=== PATIENT | female | born 1975 | race African-American/Black ===

== ENCOUNTER 2022-10-15 06:06 | Inpatient (IN) ==
[2022-10-15] MEDS ORDERED: ProvayBLUE 0.5% ONE (06:41)
[2022-10-15] MEDS ORDERED: BETADINE SOLN ONE (06:41)
[2022-10-15] MEDS ORDERED: D5 1/2 NS 1,000 ML 1,000 ML IV SCH (06:48)
[2022-10-15] MEDS ORDERED: ANCEF VIAL 1 GRAM IVP ONE (06:48)
[2022-10-15] MEDS ORDERED: NS 100 ML IV 100 ML ONE (06:57)
[2022-10-15] MEDS ORDERED: ANCEF VIAL 1 GRAM ONE (06:57)
[2022-10-15] MEDS ORDERED: NS 1,000 ML IV 1,000 ML ONE (06:57)
[2022-10-15 07:17] VITALS: BMI 29.0
[2022-10-15] MEDS ORDERED: ZEMURON 100 MG VIAL ONE (07:22)
[2022-10-15] MEDS ORDERED: QUELICIN (OR ANECTINE) ONE (07:22)
[2022-10-15] MEDS ORDERED: VERSED ONE (07:22)
[2022-10-15] MEDS ORDERED: FENTANYL VIAL INJ 250 mcg ONE (07:22)
[2022-10-15] MEDS ORDERED: SUPRANE ONE (07:23)
[2022-10-15] MEDS ORDERED: XYLOCAINE 2 % (PLAIN) ONE (07:23)
[2022-10-15] MEDS ORDERED: DIPRIVAN VIAL 20 ML ONE (07:23)
[2022-10-15] MEDS ORDERED: DILAUDID INJ ONE (08:40)
[2022-10-15] MEDS ORDERED: BRIDION ONE (08:54)
[2022-10-15] MEDS ORDERED: ZOFRAN INJ 4 MG VIAL ONE (08:54)
[2022-10-15] MEDS ORDERED: REGLAN INJ 10 MG VIAL IVP PRN (09:01)
[2022-10-15] MEDS ORDERED: ZOFRAN INJ 4 MG VIAL IVP PRN ×2 (09:01→10:38)
[2022-10-15] MEDS ORDERED: BENADRYL INJ 50 MG VIAL IVP PRN (09:01)
[2022-10-15] MEDS ORDERED: BARHEMSYS INJ IVP PRN (09:01)
[2022-10-15] MEDS ORDERED: D5 1/2 NS 1,000 ML 1,000 ML IV ONE (09:05)
[2022-10-15] MEDS: DILAUDID INJ IVP PRN ×2 (09:43→10:05)
[2022-10-15] MEDS ORDERED: TORADOL 30 MG VIAL ONE (09:59)
[2022-10-15] MEDS ORDERED: NovoLIN R (or HumuLIN R) SC PRN (10:49)
[2022-10-15] MEDS: NS 1,000 ML IV 1,000 ML IV SCH ×4 (11:11→23:18)
[2022-10-15] MEDS: MORPHINE SULFATE PCA 30 MG IVP PRN ×2 (12:20→16:50)
[2022-10-15] MEDS: TORADOL 30 MG VIAL IVP PRN ×2 (14:29→21:40)
[2022-10-15] MEDS: BENADRYL INJ 50 MG VIAL IVP PRN ×2 (15:50→21:41)
[2022-10-16] MEDS: TORADOL 30 MG VIAL IVP PRN (03:39)
[2022-10-16] MEDS: NS 1,000 ML IV 1,000 ML IV SCH ×3 (03:40→19:20)
[2022-10-16 05:25] LABS: BASOPHILS # (AUTO) 0.1 X10^3/uL (0.0-0.1); BASOPHILS % (AUTO) 0.7 % (0.2-1.0); EOSINOPHILS % (AUTO) 0.1 % (0.9-2.9); HEMATOCRIT 29.4 % (36.0-47.0); HEMOGLOBIN 9.8 g/dL (12.0-16.0); LYMPHOCYTES # (AUTO) 1.9 X10^3/uL (1.3-2.9); LYMPHOCYTES % (AUTO) 17.9 % (21.0-51.0); MEAN CORPUSCULAR HEMOGLOBIN 26.3 pg (27.0-34.0); MEAN CORPUSCULAR HGB CONC 33.3 g/dL (33.0-35.0); MEAN CORPUSCULAR VOLUME 78.8 fL (80.0-100.0); MEAN PLATELET VOLUME 9.1 fL (7.4-11.0); MONOCYTES # (AUTO) 1.3 x10^3/uL (0.3-0.8); MONOCYTES % (AUTO) 12.5 % (0.0-13.0); NEUTROPHILS # (AUTO) 7.3 x10^3/uL (2.2-4.8); NEUTROPHILS % (AUTO) 68.8 % (42.0-75.0); RED BLOOD COUNT 3.73 X10^6/uL (3.5-5.4); WHITE BLOOD COUNT 10.6 X10^3/uL (3.6-10.0)
[2022-10-16 05:29] LABS: BLOOD UREA NITROGEN 4 mg/dL (7-18); CALCIUM 7.8 mg/dL (8.5-10.1); CARBON DIOXIDE 29.7 mmol/L (21-32); CHLORIDE 100 mmol/L (98-107); COR NA(FOR HYPERGLY) 136 mmol/L (136-145); CREATININE 0.73 mg/dL (0.55-1.02); SODIUM 136 mmol/L (136-145); eGFR NON BLACK RACES > 60 (>60)
[2022-10-16] MEDS ORDERED: MICRO K EXTEN CAP 10 MEQ PO PRN (07:26)
[2022-10-16] MEDS ORDERED: POTASSIUM CHLORIDE LIQ 20 MEQ UDC PO PRN (07:26)
[2022-10-16] MEDS ORDERED: K-RIDER 10 MEQ/NS 100 ML 10 MEQ/100 ML BAG IV PRN (07:26)
[2022-10-16] MEDS ORDERED: POTASSIUM CHL 60 MEQ/NS 0.45% 500 ML IV PRN (07:26)
[2022-10-16] MEDS ORDERED: POTASSIUM CHL 40 MEQ/NS 0.45% 500 ML IV PRN (07:26)
[2022-10-16] MEDS ORDERED: KLOR-CON PO PRN (07:26)
[2022-10-16] MEDS ORDERED: AMBIEN PO PRN (07:31)
[2022-10-16] MEDS: COLACE CAP 100 MG PO SCH ×2 (08:37→20:11)
[2022-10-16] MEDS: MOTRIN TAB 800 MG PO PRN ×2 (08:38→19:20)
[2022-10-16] MEDS: K-DUR TAB 20 MEQ PO PRN ×4 (08:38→20:11)
[2022-10-16] MEDS: NORVASC TAB 5 MG PO SCH (08:39)
[2022-10-16] MEDS: ESTRACE PO SCH (08:39)
[2022-10-16] MEDS: BENADRYL INJ 50 MG VIAL IVP PRN (08:40)
[2022-10-16] MEDS: MAGNESIUM SULFATE 1 GRAM/100 mL PREMIX 1 G/100 ML BAG IV PRN ×2 (10:06→12:03)
[2022-10-16] MEDS: PERCOCET TAB 5/325 MG PO PRN ×3 (12:08→20:11)
[2022-10-16] MEDS: BACTROBAN TOPICAL OINT TOP SCH ×2 (14:24→22:12)
[2022-10-16] MEDS ORDERED: GLUCOPHAGE ONE (17:33)
[2022-10-16] MEDS: GLUCOPHAGE PO SCH (17:35)
[2022-10-16] MEDS ORDERED: CRESTOR TAB 10 MG PO SCH (21:00)
[2022-10-17] MEDS: PERCOCET TAB 5/325 MG PO PRN ×3 (00:02→09:03)
[2022-10-17] MEDS: NS 1,000 ML IV 1,000 ML IV SCH (01:45)
[2022-10-17] MEDS ORDERED: GLUCOPHAGE ONE (05:03)
[2022-10-17] MEDS: BACTROBAN TOPICAL OINT TOP SCH (05:13)
[2022-10-17] MEDS: GLUCOPHAGE PO SCH (06:02)
[2022-10-17] MEDS: NORVASC TAB 5 MG PO SCH (09:02)
[2022-10-17] MEDS: ESTRACE PO SCH (09:02)
[2022-10-17] MEDS: COLACE CAP 100 MG PO SCH (09:03)
[2022-10-17 09:11] VITALS: BP 118/72
== END 2022-10-17 09:17 | disposition home or self-care (01) | DRG 743 ==
LOC: MED/SURG 06:06
PROVIDERS: ADMIT Specialist; ATTEND Specialist
DX: R10.2 Pelvic and perineal pain; R73.09 Other abnormal glucose; N94.4 Primary dysmenorrhea; N92.5 Other specified irregular menstruation; D25.2 Subserosal leiomyoma of uterus; I10 Essential (primary) hypertension; E87.6 Hypokalemia